=== PATIENT | male | born 1985 | race Hispanic/Latino ===

== ENCOUNTER 2016-06-22 13:00 | Emergency (ER) | payer OTHER ==
--- NOTE | 2016-06-22 13:52 | EDDOCDS ---
Physician Documentation [facility] Name: Merrill Jerry Age: 31 yrs Sex: Male : 1985 Arrival Date: 06/22/2016 Time: 13:00 Bed Triage 2 Private MD: Aneta Mccall FNP Disposition: 06/22/16 13:40 Discharged to Home/Self Care. Impression: Acute upper respiratory infection, unspecified. - Condition is Stable. - Discharge Instructions: Smoking Cessation, Upper Respiratory Infection, Adult, Cough, Adult. - Prescriptions for benzonatate 200 mg Oral Capsule - take 1 capsule by ORAL route 3 times per day As needed; 30 capsule. Fluticasone 50 mcg/actuation Nasal [place], Suspension - inhale 2 spray by INTRANASAL route once daily; 1 bottle. - Medication Reconciliation, Local Pharmacy Hours, Work Release Form - 2 day form. - Follow up: Aneta Mccall; When: Call to arrange an appointment; Reason: Recheck today's complaints, Continuance of care. Follow up: Emergency Department; When: As needed; Reason: Fever > 102F, Trouble breathing, Worsening of conditions. - Problem is new. - Symptoms are unchanged. Historical: - Allergies: no known allergies; - Home Meds: 1. Prozac 10 mg Oral cap once daily 2. omeprazole 40 mg oral cpDR 1 cap once daily 3. Klonopin 0.5 mg Oral tab four times a day pt states that he hasn't been taking this medication - PMHx: Depression; GERD; - PSHx: none; - Social history: Smoking status: Patient uses tobacco products, current every day smoker. No barriers to communication noted, The patient speaks fluent Albanian. - Family history: Not pertinent. - : The pt / caregiver states he / she is not on anticoagulants. Home medication list is obtained from the patient. - Exposure Risk Screening:: None identified. Vital Signs: 06/22 13:02 BP 132 / 78; Pulse 120; Resp 22 S; Temp 97.8(O); Pulse Ox 97% on R/A; Weight 83.46 kg / dd6 184 lbs (R); Height 5 ft. 8 in. (172.72 cm) (R); 13:48 Pulse 98; Resp 18; ms18 13:02 Body Mass Index 27.98 (83.46 kg, 172.72 cm) dd6 Signatures: Juan M Chambers PA-C PA-C ar2 Donna Srivastava,RN RN ms18 MTDD
--- NOTE | 2016-06-22 13:52 | EDDOCDS ---
Nurse's Notes [facility] Name: Merrill Jerry Age: 31 yrs Sex: Male : 1985 Arrival Date: 06/22/2016 Time: 13:00 Bed Triage 2 Private MD: Aneta Mccall FNP Diagnosis: Acute upper respiratory infection, unspecified Presentation: 06/22 13:04 Presenting complaint: Patient states: that he has an uncontrollable cough that started ms18 last night. Adult Sepsis Screening: The patient does not have new or worsening altered mentation. Patient's respiratory rate is less than 22. Systolic blood pressure is greater than 100. Patient has a qSOFA score of 0- Negative Sepsis Screen. Suicide/Homicide risk assessment- the patient denies having any suicidal and/or homicidal ideations and does not present with any other emotional, behavioral or mental health complaints. Status: Patient is not a patient services representative or dependent. Transition of care: patient was not received from another setting of care. 13:04 Acuity: ROSALIO Level 4 ms18 13:04 Method Of Arrival: Walkin/Carried/Asstd ms18 Triage Assessment: 13:07 General: Appears in no apparent distress, Behavior is appropriate for age, cooperative. ms18 Pain: Location: throat and chest Pain currently is 2 out of 10 on a pain scale. HIV screening NA for this visit Offered previously. Neurological: Level of Consciousness is awake, alert, obeys commands, Oriented to person, place, time. Respiratory: Airway is patent Respiratory effort is even, unlabored, Reports cough that is non-productive. Derm: Skin is pink, warm & dry. Historical: - Allergies: no known allergies; - Home Meds: 1. Prozac 10 mg Oral cap once daily 2. omeprazole 40 mg oral cpDR 1 cap once daily 3. Klonopin 0.5 mg Oral tab four times a day pt states that he hasn't been taking this medication - PMHx: Depression; GERD; - PSHx: none; - Social history: Smoking status: Patient uses tobacco products, current every day smoker. No barriers to communication noted, The patient speaks fluent [place]. - Family history: Not pertinent. - : The pt / caregiver states he / she is not on anticoagulants. Home medication list is obtained from the patient. - Exposure Risk Screening:: None identified. Screenin:48 Screening information is obtained from the patient. Fall risk: No risks identified. ms18 Assistance ADL's: requires no assistance with activities of daily living. Abuse/DV Screen: The patient / caregiver reports he/she is: not in a situation that causes fear, pain or injury. Nutritional screening: No deficits noted. Advance Directives: There is no living will. home support is adequate. Assessment: 13:48 General: Appears in no apparent distress, comfortable, Behavior is appropriate for age, ms18 cooperative. Neurological: Level of Consciousness is awake, alert, obeys commands, Oriented to person, place, time. Respiratory: Airway is patent Respiratory effort is even, unlabored, Reports cough that is non-productive, dry, hacking, persistent. Derm: Skin is pink, warm & dry. Vital Signs: 13:02 BP 132 / 78; Pulse 120; Resp 22 S; Temp 97.8(O); Pulse Ox 97% on R/A; Weight 83.46 kg dd6 (R); Height 5 ft. 8 in. (172.72 cm) (R); 13:48 Pulse 98; Resp 18; ms18 13:02 Body Mass Index 27.98 (83.46 kg, 172.72 cm) dd6 Vitals: 13:02 Log In Time: June 22, 2016 at 13:00. dd6 ED Course: 13:01 Patient visited by Baron Mason PCA. dd6 13:01 Aneta Mccall is Private Physician. dd6 13:01 Patient moved to Waiting dd6 13:02 Patient moved to Pre RCE dd6 13:05 Triage Initiated ms18 13:26 Patient moved to Triage 2 rs6 13:29 Juan M Chambers PA-C is PHCP. ar2 13:29 Edita Maguire MD is Attending Physician. ar2 13:29 Patient visited by Juan M Chambers PA-C. ar2 13:39 Aneta Mccall is Referral Physician. ar2 13:48 The patient / caregiver is instructed regarding the plan of care and ED course. Patient ms18 has correct armband on for positive identification. Property sent home with patient. :Personal belongings accompany Pt. 13:48 No IV's were initiated during this patient's visit. No procedures done that require ms18 assistance. Order Results: There are currently no results for this order. Outcome: 13:40 Discharge ordered by Provider. ar2 13:48 Discharge Assessment: Patient awake, alert and oriented x 3. No cognitive and/or ms18 functional deficits noted. Patient verbalized understanding of disposition instructions. patient administered narcotics - no. The following High Risk Discharge criteria are identified: None. Discharged to home ambulatory. Condition: good Condition: stable. Discharge instructions given to patient, Instructed on discharge instructions, follow up and referral plans. medication usage, Demonstrated understanding of instructions, medications, Pt was receptive of discharge instructions/ teaching. Prescriptions given X 2. No special radiology studies were completed. 13:51 Patient left the ED. ms18 Signatures: Juan M Chambers, AMRITAC PAGabino ar2 Baron Mason, DATA ENTRY ASSOCIATE DATA ENTRY ASSOCIATE dd6 Donna Srivastava RN RN ms18 Gissel Navarrete, DATA ENTRY ASSOCIATE DATA ENTRY ASSOCIATE rs6 Corrections: (The following items were deleted from the chart) 13:50 13:48 Resp 18bpm; ms18 ms18 MTDD
--- NOTE | 2016-06-24 14:52 | EDDOCDS ---
Nurse's Notes [facility] Name: Merrill Jerry Age: 31 yrs Sex: Male : 1985 Arrival Date: 06/22/2016 Time: 13:00 Bed Triage 2 Private MD: Aneta Mccall FNP Diagnosis: Acute upper respiratory infection, unspecified Presentation: 06/22 13:04 Presenting complaint: Patient states: that he has an uncontrollable cough that started ms18 last night. Adult Sepsis Screening: The patient does not have new or worsening altered mentation. Patient's respiratory rate is less than 22. Systolic blood pressure is greater than 100. Patient has a qSOFA score of 0- Negative Sepsis Screen. Suicide/Homicide risk assessment- the patient denies having any suicidal and/or homicidal ideations and does not present with any other emotional, behavioral or mental health complaints. Status: Patient is not a resident services coordinator or dependent. Transition of care: patient was not received from another setting of care. 13:04 Acuity: ROSALIO Level 4 ms18 13:04 Method Of Arrival: Walkin/Carried/Asstd ms18 Triage Assessment: 13:07 General: Appears in no apparent distress, Behavior is appropriate for age, cooperative. ms18 Pain: Location: throat and chest Pain currently is 2 out of 10 on a pain scale. HIV screening NA for this visit Offered previously. Neurological: Level of Consciousness is awake, alert, obeys commands, Oriented to person, place, time. Respiratory: Airway is patent Respiratory effort is even, unlabored, Reports cough that is non-productive. Derm: Skin is pink, warm & dry. Historical: - Allergies: no known allergies; - Home Meds: 1. Prozac 10 mg Oral cap once daily 2. omeprazole 40 mg oral cpDR 1 cap once daily 3. Klonopin 0.5 mg Oral tab four times a day pt states that he hasn't been taking this medication - PMHx: Depression; GERD; - PSHx: none; - Social history: Smoking status: Patient uses tobacco products, current every day smoker. No barriers to communication noted, The patient speaks fluent Trinidadian. - Family history: Not pertinent. - : The pt / caregiver states he / she is not on anticoagulants. Home medication list is obtained from the patient. - Exposure Risk Screening:: None identified. Screenin:48 Screening information is obtained from the patient. Fall risk: No risks identified. ms18 Assistance ADL's: requires no assistance with activities of daily living. Abuse/DV Screen: The patient / caregiver reports he/she is: not in a situation that causes fear, pain or injury. Nutritional screening: No deficits noted. Advance Directives: There is no living will. home support is adequate. Assessment: 13:48 General: Appears in no apparent distress, comfortable, Behavior is appropriate for age, ms18 cooperative. Neurological: Level of Consciousness is awake, alert, obeys commands, Oriented to person, place, time. Respiratory: Airway is patent Respiratory effort is even, unlabored, Reports cough that is non-productive, dry, hacking, persistent. Derm: Skin is pink, warm & dry. Vital Signs: 13:02 BP 132 / 78; Pulse 120; Resp 22 S; Temp 97.8(O); Pulse Ox 97% on R/A; Weight 83.46 kg dd6 (R); Height 5 ft. 8 in. (172.72 cm) (R); 13:48 Pulse 98; Resp 18; ms18 13:02 Body Mass Index 27.98 (83.46 kg, 172.72 cm) dd6 Vitals: 13:02 Log In Time: June 22, 2016 at 13:00. dd6 ED Course: 13:01 Patient visited by Baron Mason PCA. dd6 13:01 Aneta Mccall is Private Physician. dd6 13:01 Patient moved to Waiting dd6 13:02 Patient moved to Pre RCE dd6 13:05 Triage Initiated ms18 13:26 Patient moved to Triage 2 rs6 13:29 Juan M Chambers PA-C is PHCP. ar2 13:29 Edita Maguire MD is Attending Physician. ar2 13:29 Patient visited by Juan M Chambers PA-C. ar2 13:39 Aneta Mccall is Referral Physician. ar2 13:48 The patient / caregiver is instructed regarding the plan of care and ED course. Patient ms18 has correct armband on for positive identification. Property sent home with patient. :Personal belongings accompany Pt. 13:48 No IV's were initiated during this patient's visit. No procedures done that require ms18 assistance. 14:03 [facility] Payment Agreement was scanned into [employer] and attached to record. jp5 14:32 T-Sheet-- Draft Copy was scanned into [employer] and attached to record. gb Order Results: There are currently no results for this order. Outcome: 13:40 Discharge ordered by Provider. ar2 13:48 Discharge Assessment: Patient awake, alert and oriented x 3. No cognitive and/or ms18 functional deficits noted. Patient verbalized understanding of disposition instructions. patient administered narcotics - no. The following High Risk Discharge criteria are identified: None. Discharged to home ambulatory. Condition: good Condition: stable. Discharge instructions given to patient, Instructed on discharge instructions, follow up and referral plans. medication usage, Demonstrated understanding of instructions, medications, Pt was receptive of discharge instructions/ teaching. Prescriptions given X 2. No special radiology studies were completed. 13:51 Patient left the ED. ms18 Signatures: Dai Merida, Reg Reg gb Juan M Chambers, ANJELICA PA-Blair ar2 Baron Mason, MOVIE MACHINE OPERATOR MOVIE MACHINE OPERATOR dd6 Donna Srivastava,RN RN ms18 Gissel Navarrete, MOVIE MACHINE OPERATOR MOVIE MACHINE OPERATOR rs6 Sotero Hogue jp5 Corrections: (The following items were deleted from the chart) 13:50 13:48 Resp 18bpm; ms18 ms18 Chart Complete MTDD
--- NOTE | 2016-06-24 14:52 | EDDOCDS ---
Physician Documentation [facility] Name: Merrill Jerry Age: 31 yrs Sex: Male : 1985 Arrival Date: 06/22/2016 Time: 13:00 Bed Triage 2 Private MD: Aneta Mccall FNP Disposition: 06/22/16 13:40 Discharged to Home/Self Care. Impression: Acute upper respiratory infection, unspecified. - Condition is Stable. - Discharge Instructions: Smoking Cessation, Upper Respiratory Infection, Adult, Cough, Adult. - Prescriptions for benzonatate 200 mg Oral Capsule - take 1 capsule by ORAL route 3 times per day As needed; 30 capsule. Fluticasone 50 mcg/actuation Nasal [place], Suspension - inhale 2 spray by INTRANASAL route once daily; 1 bottle. - Medication Reconciliation, Local Pharmacy Hours, Work Release Form - 2 day form. - Follow up: Aneta Mccall; When: Call to arrange an appointment; Reason: Recheck today's complaints, Continuance of care. Follow up: Emergency Department; When: As needed; Reason: Fever > 102F, Trouble breathing, Worsening of conditions. - Problem is new. - Symptoms are unchanged. Historical: - Allergies: no known allergies; - Home Meds: 1. Prozac 10 mg Oral cap once daily 2. omeprazole 40 mg oral cpDR 1 cap once daily 3. Klonopin 0.5 mg Oral tab four times a day pt states that he hasn't been taking this medication - PMHx: Depression; GERD; - PSHx: none; - Social history: Smoking status: Patient uses tobacco products, current every day smoker. No barriers to communication noted, The patient speaks fluent Hebrew. - Family history: Not pertinent. - : The pt / caregiver states he / she is not on anticoagulants. Home medication list is obtained from the patient. - Exposure Risk Screening:: None identified. Vital Signs: 06/22 13:02 BP 132 / 78; Pulse 120; Resp 22 S; Temp 97.8(O); Pulse Ox 97% on R/A; Weight 83.46 kg / dd6 184 lbs (R); Height 5 ft. 8 in. (172.72 cm) (R); 13:48 Pulse 98; Resp 18; ms18 13:02 Body Mass Index 27.98 (83.46 kg, 172.72 cm) dd6 MDM: 14:03 [facility] [place] Agreement was scanned into [employer] and attached to record. jp5 14:03 Financial registration complete. jp5 14:32 T-Sheet-- Draft Copy was scanned into [employer] and attached to record. gb Signatures: Dai Merida, Reg Reg gb Juan M Chambers PA-C PA-C ar2 Donna SrivastavaRN RN ms18 Sotero Hogue jp5 The chart was reviewed and I authenticate all verbal orders and agree with the evaluation and treatment provided.Attachments: 14:03 [facility] Payment Agreement jp5 14:32 T-Sheet-- Draft Copy gb Chart Complete MTDD
--- NOTE | 2016-06-24 14:52 | EDDOCDS ---
Physician Documentation [facility] Name: Merrill Jerry Age: 31 yrs Sex: Male : 1985 Arrival Date: 06/22/2016 Time: 13:00 Bed Triage 2 Private MD: Aneta Mccall FNP Disposition: 06/22/16 13:40 Discharged to Home/Self Care. Impression: Acute upper respiratory infection, unspecified. - Condition is Stable. - Discharge Instructions: Smoking Cessation, Upper Respiratory Infection, Adult, Cough, Adult. - Prescriptions for benzonatate 200 mg Oral Capsule - take 1 capsule by ORAL route 3 times per day As needed; 30 capsule. Fluticasone 50 mcg/actuation Nasal [place], Suspension - inhale 2 spray by INTRANASAL route once daily; 1 bottle. - Medication Reconciliation, Local Pharmacy Hours, Work Release Form - 2 day form. - Follow up: Aneta Mccall; When: Call to arrange an appointment; Reason: Recheck today's complaints, Continuance of care. Follow up: Emergency Department; When: As needed; Reason: Fever > 102F, Trouble breathing, Worsening of conditions. - Problem is new. - Symptoms are unchanged. Historical: - Allergies: no known allergies; - Home Meds: 1. Prozac 10 mg Oral cap once daily 2. omeprazole 40 mg oral cpDR 1 cap once daily 3. Klonopin 0.5 mg Oral tab four times a day pt states that he hasn't been taking this medication - PMHx: Depression; GERD; - PSHx: none; - Social history: Smoking status: Patient uses tobacco products, current every day smoker. No barriers to communication noted, The patient speaks fluent Polish. - Family history: Not pertinent. - : The pt / caregiver states he / she is not on anticoagulants. Home medication list is obtained from the patient. - Exposure Risk Screening:: None identified. Vital Signs: 06/22 13:02 BP 132 / 78; Pulse 120; Resp 22 S; Temp 97.8(O); Pulse Ox 97% on R/A; Weight 83.46 kg / dd6 184 lbs (R); Height 5 ft. 8 in. (172.72 cm) (R); 13:48 Pulse 98; Resp 18; ms18 13:02 Body Mass Index 27.98 (83.46 kg, 172.72 cm) dd6 MDM: 14:03 [facility] [place] Agreement was scanned into [employer] and attached to record. jp5 14:03 Financial registration complete. jp5 14:32 T-Sheet-- Draft Copy was scanned into [employer] and attached to record. gb Signatures: Dai Merida, Reg Reg gb Juan M Chambers PA-C PA-C ar2 Donna SrivastavaRN RN ms18 Sotero Hogue jp5 The chart was reviewed and I authenticate all verbal orders and agree with the evaluation and treatment provided.Attachments: 14:03 [facility] Payment Agreement jp5 14:32 T-Sheet-- Draft Copy gb Chart Complete MTDD
== END 2016-06-22 13:51 | disposition home or self-care (01) ==
LOC: M ED 13:00
DX: J06.9 Acute upper respiratory infection, unspecified (principal); F32.9 Major depressive disorder, single episode, unspecified; K21.9 Gastro-esophageal reflux disease without esophagitis; F17.210 Nicotine dependence, cigarettes, uncomplicated; Z79.899 Other long term (current) drug therapy

== ENCOUNTER 2016-10-25 13:33 | Emergency (ER) | payer OTHER ==
[~2016-10-25] VITALS: Ht 172.7 cm; Wt 83.9 kg
[2016-10-25] MEDS ORDERED: MULTLIQ7 PO (13:43)
[2016-10-25] MEDS ORDERED: LOPE2CA (13:43)
[2016-10-25] MEDS ORDERED: CO Q10CA PO (13:43)
[2016-10-25] MEDS ORDERED: HYDR-3713 PO (13:43)
[2016-10-25] MEDS ORDERED: CLON0.5T (13:43)
[2016-10-25] MEDS ORDERED: OMEP20CA3 (13:43)
[2016-10-25] MEDS ORDERED: FLUO10CA9 (13:43)
[2016-10-25] MEDS ORDERED: NS 1,000 ML IV ONE (15:30)
[2016-10-25] MEDS ORDERED: MORPHINE 2 MG/ML 1ML SYRINGE IV PRN (15:30)
[2016-10-25] MEDS ORDERED: ONDANSETRON 4MG/2ML VIAL (J2405) IV ONE (15:30)
--- NOTE | 2016-10-25 15:59 | REP ---
Clinical: Acute right upper quadrant abdominal pain. Technique: Mosley scale ultrasound using curved array transducer. Findings: The liver and pancreas are normal in contour, size, and echogenicity without focal hepatic or pancreatic lesions identified. The gallbladder is without gallstones, or pericholecystic fluid. Mild gallbladder wall thickening cannot definitively be excluded measuring up to 4 mm. No biliary ductal dilatation is appreciated, and the common bile duct measures 3.4 mm diameter. The right kidney is normal in reniform shape without hydronephrosis and measures 11.5 x 6.1 x 5.2 cm. No ascites. Visualized portions of the abdominal aorta normal. Impression: Mild gallbladder wall thickening cannot be excluded and is essentially nonspecific given the lack of associated findings to suggest acute cholecystitis. Signed by Hansel Rose MD 10/25/2016 03:50 P
[2016-10-25 16:20] LABS: BASO % 0.3 % (0.0-1.0); EOS # 0.2 K/mm3 (0.0-0.50); EOS % 1.2 % (0.0-3.0); LARGE UNSTAINED CELL # 0.1 K/mm3 (0.0-0.4); LARGE UNSTAINED CELL % 1.1 % (0.0-4.0); LYMPH # 1.6 K/mm3 (1.5-4.5); LYMPH % 11.8 % (24.0-44.0); MEAN CORPUSCULAR HGB CONC 34.2 g/dl (32.0-36.5); MEAN CORPUSCULAR VOLUME 96.5 fl (80.0-96.0); MONO # 0.6 K/mm3 (0.0-0.8); NEUTROPHILS % 80.7 % (36.0-66.0); PLATELET COUNT, AUTOMATED 196 k/mm3 (150-450); RED CELL DISTRIBUTION WIDTH 12.9 % (11.5-14.5); WHITE BLOOD COUNT 12.4 K/mm3 (4.0-10.0)
[2016-10-25 16:24] LABS: ALBUMIN 4.2 GM/DL (3.2-5.2); ALKALINE PHOSPHATASE 65 U/L (45-117); ALT/SGPT 27 U/L (12-78); ANION GAP 5 MEQ/L (8-16); AST/SGOT 18 U/L (15-37); BILIRUBIN,DIRECT 0.2 MG/DL (0.0-0.2); BILIRUBIN,TOTAL 0.6 MG/DL (0.2-1.0); BLOOD UREA NITROGEN 11 MG/DL (7-18); CALCIUM LEVEL 9.2 MG/DL (8.5-10.1); CARBON DIOXIDE LEVEL 30 MEQ/L (21-32); CHLORIDE LEVEL 102 MEQ/L (98-107); CREATININE FOR GFR 0.98 MG/DL (0.70-1.30); GLOMERULAR FILTRATION RATE > 60.0 (>60); GLUCOSE, FASTING 91 MG/DL (70-105); POTASSIUM SERUM 4.4 MEQ/L (3.5-5.1); SODIUM LEVEL 137 MEQ/L (136-145); TOTAL PROTEIN 7.7 GM/DL (6.4-8.2)
[2016-10-25 17:41] VITALS: BP 123/76
== END 2016-10-25 17:41 | disposition home or self-care (01) ==
LOC: M ED 15:24
DX: R10.11 Right upper quadrant pain (principal); R11.2 Nausea with vomiting, unspecified; F17.210 Nicotine dependence, cigarettes, uncomplicated; Z79.899 Other long term (current) drug therapy
CPT/HCPCS: 76705; 80048; 80076; 81001; 83605; 83690; 85025; 96374; 96375; 99283; J2405

== ENCOUNTER → 2016-12-21 | Day surgery (SDC) | payer OTHER ==
[~2016-12-21] VITALS: Ht 172.7 cm; Wt 83.9 kg
[~2016-12-21] MED LIST: BUPIVACAINE/EPIN 0.25% 30 ML VIAL As Ordered ONE; CLON0.5T PO; CO Q10CA PO; FLUO10CA9; GLYCOPYRROLATE INJ 0.2 MG/ML 2 ML VIAL As Ordered ONE; HYDR-3713 PO; KETOROLAC 30 MG/ML VIAL (J1885) IV SCH; LIDOCAINE 2% INJ 100 MG/5 ML SDV (FOR ANES.) As Ordered ONE; LOPE2CA; LR 1,000 ML IV ONE; LR 1,000 ML IV SCH; METOCLOPRAMIDE INJ 10MG/2ML VIAL (J2765) As Ordered ONE; METOCLOPRAMIDE INJ 10MG/2ML VIAL (J2765) IV PRN; MIDAZOLAM INJ 2 MG/2 ML VIAL (J2250) As Ordered ONE; MORPHINE 2 MG/ML 1ML SYRINGE IV PRN; MULTLIQ7 PO; NAPR500T3 PO; NEOSTIGMINE 1MG/ML 5 ML SYRINGE (J2710) As Ordered ONE; NORCO, ANEXSIA 5/325MG TABLET (HYDROcodone/ACETAMINOPHEN) PO PRN; OMEP20CA3 PO; ONDANSETRON 4MG/2ML VIAL (J2405) As Ordered ONE; ONDANSETRON 4MG/2ML VIAL (J2405) IV PRN; PERCOCET 5MG/325MG TAB PO PRN; PROPOFOL 200 MG/20 ML VIAL As Ordered ONE; ROCURONIUM BROMIDE 50 MG/5 ML VIAL/SYRINGE As Ordered ONE; ceFAZolin SOD 1 GM in D5W MINI-BAG PLUS 50 ML IV ONE; fentaNYL 100 MCG/2 ML INJECTION (J3010) IV PRN; fentaNYL 250 MCG/5 ML INJECTION (J3010) As Ordered ONE
[2016-12-21 13:15] VITALS: BP 146/84
--- NOTE | 2016-12-28 23:58 | RO ---
DATE OF PROCEDURE: 12/21/2016 PREOPERATIVE DIAGNOSIS: Symptomatic gallstones. POSTOPERATIVE DIAGNOSIS: Symptomatic gallstones. PROCEDURE: Laparoscopic cholecystectomy. SURGEON: Dr. Tal Garsia OPERATIONS DIRECTOR: ANESTHESIA: General endotracheal anesthesia. ESTIMATED BLOOD LOSS: Minimal. FLUIDS: Crystalloid. DESCRIPTION OF PROCEDURE: The patient was brought to the operating room, was given general anesthesia. After adequate anesthesia was established, the patient was prepped and draped in the usual sterile fashion. Next, after adequate antibiotics were given as well, a supraumbilical incision was made with a skin knife and blunt dissection was carried down to fascia. Fascia was grasped with Ramesh clamps and elevated and a Veress needle placed into the abdominal cavity, insufflated to 15 mm pressure. Dilating 10 mm trocar was placed at this time and under direct visualization, an epigastric and two lateral trocars were placed. Gallbladder was grasped, retracted superiorly. There were numerous adhesions of the gallbladder to the omentum, which were taken down with hook cautery and the neck the gallbladder then was cleared of peritoneum using the hook cautery as well. This was started on the lateral side and then brought anteriorly and then medially. Once the dissection continued further, a good window behind the neck of the gallbladder was created using hook cautery and blunt dissection. The cystic artery was well visualized, was circumferentially isolated and clips were placed on this proximally and distally and transected. The cystic duct was also seen, was well visualized, was clipped proximally and distally and transected. This was after identifying the critical view of safety. Next, the gallbladder was removed. from the gallbladder bed using electrocautery, placed in an EndoCatch bag, brought out through the umbilicus. The right upper quadrant was copiously irrigated until clear. All incisions were closed with #0 Vicryl and #4-0 Vicryl was used to approximate the skin. Steri-Strips and a dry sterile dressing was applied. The patient was awakened, extubated, brought to the recovery room awake, alert and hemodynamically stable. Sponge and needle counts were correct times two.
== END ==
LOC: M SDC 08:41
PROVIDERS: ATTEND Surgery
DX: K80.10 Calculus of gallbladder with chronic cholecystitis without obstruction (principal); F41.9 Anxiety disorder, unspecified; F32.9 Major depressive disorder, single episode, unspecified; K58.9 Irritable bowel syndrome, unspecified; K21.9 Gastro-esophageal reflux disease without esophagitis; F17.210 Nicotine dependence, cigarettes, uncomplicated; Z79.899 Other long term (current) drug therapy

== ENCOUNTER 2017-11-04 09:56 | Emergency (ER) | payer OTHER ==
[2017-11-04] MEDS: ADACEL/BOOSTRIX VACCINE (DIPHTH/PERTUSS/ACELL/TETANUS)0.5ML SYR (90715) IM (11:43)
[2017-11-04] MEDS: DERMABOND TOPICAL SKIN ADHESIVE TOP (11:44)
== END 2017-11-04 12:55 | disposition home or self-care (01) ==
LOC: M ED 09:56
DX: S09.90XA Unspecified injury of head, initial encounter (principal); S01.112A Laceration without foreign body of left eyelid and periocular area, initial encounter; W22.8XXA Striking against or struck by other objects, initial encounter; Y92.099 Unspecified place in other non-institutional residence as the place of occurrence of the external cause; Y93.9 Activity, unspecified; Y99.9 Unspecified external cause status; F32.9 Major depressive disorder, single episode, unspecified; F41.9 Anxiety disorder, unspecified; Z72.0 Tobacco use; Z79.899 Other long term (current) drug therapy
CPT/HCPCS: 90715

== ENCOUNTER → 2018-02-15 | Outpatient (CLI) | payer MEDICAID, OTHER ==
[2018-02-15 10:29] LABS: BASO % 0.5 % (0.0-1.0); EOS # 0.2 10^3/uL (0.0-0.50); EOS % 3.7 % (0.0-3.0); HEMATOCRIT 38.1 % (42.0-52.0); HEMOGLOBIN 13.1 g/dl (13.5-17.5); IMMATURE GRANULOCYTE % 0.2 % (0-3.0); LYMPH # 2.1 10^3/uL (1.5-4.5); LYMPH % 31.6 % (24.0-44.0); MEAN CORPUSCULAR HEMOGLOBIN 31.5 pg (27.0-33.0); MEAN CORPUSCULAR HGB CONC 34.4 g/dl (32.0-36.5); MEAN CORPUSCULAR VOLUME 91.6 fl (80.0-96.0); MONO # 0.6 10^3/uL (0.0-0.8); MONO % 8.9 % (0.0-5.0); NEUTROPHILS # 3.6 10^3/uL (1.8-7.7); NEUTROPHILS % 55.1 % (36.0-66.0); PLATELET COUNT, AUTOMATED 222 10^3/uL (150-450); RED BLOOD COUNT 4.16 10^6/uL (4.30-6.10); WHITE BLOOD COUNT 6.5 10^3/uL (4.0-10.0)
[2018-02-15 11:06] LABS: ESTIMATED AVERAGE GLUCOSE 111 MG/DL (60-110); HEMOGLOBIN A1c 5.5 %
[2018-02-15 11:07] LABS: ALBUMIN/GLOBULIN RATIO 1.33 (1.00-1.93); ALKALINE PHOSPHATASE 57 U/L (45-117); ALT/SGPT 21 U/L (12-78); ANION GAP 9 MEQ/L (8-16); AST/SGOT 12 U/L (7-37); BILIRUBIN,TOTAL 0.4 MG/DL (0.2-1.0); BLOOD UREA NITROGEN 12 MG/DL (7-18); CALCIUM LEVEL 8.8 MG/DL (8.5-10.1); CARBON DIOXIDE LEVEL 24 MEQ/L (21-32); CHLORIDE LEVEL 110 MEQ/L (98-107); CHOLESTEROL LEVEL 122 MG/DL (<200); CHOLESTEROL RISK RATIO 3.935 (<5); CREATININE FOR GFR 0.89 MG/DL (0.70-1.30); GLOMERULAR FILTRATION RATE > 60.0 (>60); GLUCOSE, FASTING 97 MG/DL (70-100); HDL CHOLESTEROL 31 MG/DL (>40); LDL CHOLESTEROL 67.4 MG/DL (<100); NON-HDL-C 91 MG/DL; POTASSIUM SERUM 4.2 MEQ/L (3.5-5.1); SODIUM LEVEL 143 MEQ/L (136-145); THYROID STIMULATING HORMONE 0.157 uIU/ML (0.358-3.740); TOTAL 25(OH) VITAMIN D 28.7 NG/ML (30.0-100.0); TRIGLYCERIDES LEVEL 118 MG/DL (<150); VITAMIN B12 LEVEL 305 PG/ML (247-911)
== END ==
LOC: M LAB 09:55
DX: F39 Unspecified mood [affective] disorder (principal)
CPT/HCPCS: 84443

== ENCOUNTER → 2019-03-05 | Outpatient (REF) | payer BC ==
[~2019-03-05] MED LIST changes: -BUPIVACAINE/EPIN 0.25% 30 ML VIAL As Ordered ONE; +CELE10TA PO; -CLON0.5T PO; +CLON0.5T8 PO; -GLYCOPYRROLATE INJ 0.2 MG/ML 2 ML VIAL As Ordered ONE; -KETOROLAC 30 MG/ML VIAL (J1885) IV SCH; -LIDOCAINE 2% INJ 100 MG/5 ML SDV (FOR ANES.) As Ordered ONE; -LR 1,000 ML IV ONE; -LR 1,000 ML IV SCH; -METOCLOPRAMIDE INJ 10MG/2ML VIAL (J2765) As Ordered ONE; -METOCLOPRAMIDE INJ 10MG/2ML VIAL (J2765) IV PRN; -MIDAZOLAM INJ 2 MG/2 ML VIAL (J2250) As Ordered ONE; -MORPHINE 2 MG/ML 1ML SYRINGE IV PRN; +NAPR-885 PO; -NAPR500T3 PO; -NEOSTIGMINE 1MG/ML 5 ML SYRINGE (J2710) As Ordered ONE; -NORCO, ANEXSIA 5/325MG TABLET (HYDROcodone/ACETAMINOPHEN) PO PRN; -OMEP20CA3 PO; +OMEP20CA4 PO; -ONDANSETRON 4MG/2ML VIAL (J2405) As Ordered ONE; -ONDANSETRON 4MG/2ML VIAL (J2405) IV PRN; -PERCOCET 5MG/325MG TAB PO PRN; -PROPOFOL 200 MG/20 ML VIAL As Ordered ONE; -ROCURONIUM BROMIDE 50 MG/5 ML VIAL/SYRINGE As Ordered ONE; -ceFAZolin SOD 1 GM in D5W MINI-BAG PLUS 50 ML IV ONE; -fentaNYL 100 MCG/2 ML INJECTION (J3010) IV PRN; -fentaNYL 250 MCG/5 ML INJECTION (J3010) As Ordered ONE
[2019-03-05 16:32] LABS: BASO % 0.5 % (0.0-1.0); EOS # 0.2 10^3/uL (0.0-0.5); EOS % 2.1 % (0.0-3.0); HEMATOCRIT 40.5 % (42.0-52.0); LYMPH # 2.8 10^3/uL (1.5-5.0); LYMPH % 33.2 % (24.0-44.0); MEAN CORPUSCULAR HEMOGLOBIN 33.3 pg (27.0-33.0); MEAN CORPUSCULAR HGB CONC 34.6 g/dl (32.0-36.5); MEAN CORPUSCULAR VOLUME 96.2 fl (80.0-96.0); MONO # 0.8 10^3/uL (0.0-0.8); MONO % 8.9 % (0.0-5.0); NEUTROPHILS # 4.7 10^3/uL (1.5-8.5); NEUTROPHILS % 54.9 % (36.0-66.0); PLATELET COUNT, AUTOMATED 221 10^3/uL (150-450); RED BLOOD COUNT 4.21 10^6/uL (4.30-6.10); WHITE BLOOD COUNT 8.6 10^3/uL (4.0-10.0)
[2019-03-05 16:45] LABS: ALBUMIN 4.4 GM/DL (3.2-5.2); ALT/SGPT 22 U/L (12-78); BILIRUBIN,TOTAL 0.8 MG/DL (0.2-1.0); BLOOD UREA NITROGEN 9 MG/DL (7-18); CALCIUM LEVEL 9.2 MG/DL (8.5-10.1); CARBON DIOXIDE LEVEL 26 MEQ/L (21-32); CHLORIDE LEVEL 103 MEQ/L (98-107); CHOLESTEROL LEVEL 162 MG/DL (<200); CHOLESTEROL RISK RATIO 4.263 (<5); CREATININE FOR GFR 1.09 MG/DL (0.70-1.30); FREE T4 0.91 NG/DL (0.76-1.46); GLOMERULAR FILTRATION RATE > 60.0 (>60); GLUCOSE, FASTING 90 MG/DL (70-100); HDL CHOLESTEROL 38 MG/DL (>40); LDL CHOLESTEROL 80 MG/DL (<100); NON-HDL-C 124 MG/DL; POTASSIUM SERUM 4.1 MEQ/L (3.5-5.1); SODIUM LEVEL 138 MEQ/L (136-145); TOTAL PROTEIN 7.7 GM/DL (6.4-8.2); TRIGLYCERIDES LEVEL 220 MG/DL (<150)
[2019-03-05 17:30] LABS: HEMOGLOBIN A1c 5.6 %
== END ==
LOC: M LAB REF 15:51
PROVIDERS: ATTEND Nurse Practitioner Family
DX: Z00.01 Encounter for general adult medical examination with abnormal findings (principal)

== ENCOUNTER 2019-10-22 18:00 | Emergency (ER) | payer BC ==
[~2019-10-22] VITALS: Ht 172.7 cm; Wt 78.3 kg
[2019-10-22 18:00] VITALS: BP 132/84
[~2019-10-22 18:00] MED LIST changes: +CLON0.5T2 PO; -CLON0.5T8 PO; +OMEP1CAP73 PO; -OMEP20CA4 PO
[2019-10-22] MEDS ORDERED: TETRACAINE 0.5% OPHTH SOLN 4ML OS ONE (18:45)
[2019-10-22] MEDS ORDERED: FLUORESCEIN OPHTH 1 MG STRIP OS ONE (18:45)
[2019-10-22] MEDS ORDERED: KETO0.02 OS (18:56)
[2019-10-22] MEDS ORDERED: OCUF0.25 OS (18:56)
== END 2019-10-22 19:06 | disposition home or self-care (01) ==
LOC: M ED 18:00
DX: S05.02XA Injury of conjunctiva and corneal abrasion without foreign body, left eye, initial encounter (principal); X58.XXXA Exposure to other specified factors, initial encounter; Y92.9 Unspecified place or not applicable; K21.9 Gastro-esophageal reflux disease without esophagitis; F41.9 Anxiety disorder, unspecified; F33.9 Major depressive disorder, recurrent, unspecified; Z79.899 Other long term (current) drug therapy

== ENCOUNTER → 2020-08-06 | Outpatient (REF) | payer BC ==
[~2020-08-06] MED LIST changes: +KETO0.02 OS; +OCUF0.25 OS
[2020-08-06 19:18] LABS: BASO % 0.2 % (0.0-1.0); EOS # 0.1 10^3/uL (0.0-0.5); EOS % 1.7 % (0.0-3.0); HEMATOCRIT 41.2 % (42.0-52.0); HEMOGLOBIN 13.6 g/dl (13.5-17.5); LYMPH # 2.1 10^3/uL (1.5-5.0); LYMPH % 24.6 % (24.0-44.0); MEAN CORPUSCULAR HEMOGLOBIN 32.2 pg (27.0-33.0); MEAN CORPUSCULAR VOLUME 97.4 fl (80.0-96.0); MONO # 0.8 10^3/uL (0.0-0.8); MONO % 10.1 % (2.0-8.0); NEUTROPHILS # 5.3 10^3/uL (1.5-8.5); NEUTROPHILS % 62.9 % (36.0-66.0); PLATELET COUNT, AUTOMATED 216 10^3/uL (150-450); RED BLOOD COUNT 4.23 10^6/uL (4.30-6.10); WHITE BLOOD COUNT 8.3 10^3/uL (4.0-10.0)
[2020-08-06 19:21] LABS: ALBUMIN 4.1 GM/DL (3.2-5.2); ALT/SGPT 34 U/L (12-78); BILIRUBIN,TOTAL 0.4 MG/DL (0.2-1.0); BLOOD UREA NITROGEN 15 MG/DL (7-18); CALCIUM LEVEL 9.2 MG/DL (8.5-10.1); CARBON DIOXIDE LEVEL 28 MEQ/L (21-32); CHLORIDE LEVEL 106 MEQ/L (98-107); CHOLESTEROL LEVEL 136 MG/DL (<200); CHOLESTEROL RISK RATIO 2.566 (<5); CREATININE FOR GFR 0.95 MG/DL (0.70-1.30); GLOMERULAR FILTRATION RATE > 60.0 (>60); GLUCOSE, FASTING 93 MG/DL (70-100); HDL CHOLESTEROL 53 MG/DL (>40); LDL CHOLESTEROL 48 MG/DL (<100); NON-HDL-C 83 MG/DL; POTASSIUM SERUM 4.5 MEQ/L (3.5-5.1); SODIUM LEVEL 139 MEQ/L (136-145); THYROID STIMULATING HORMONE 0.325 uIU/ML (0.358-3.740); TOTAL 25(OH) VITAMIN D 12.7 NG/ML (30.0-100.0); TOTAL PROTEIN 7.2 GM/DL (6.4-8.2); TRIGLYCERIDES LEVEL 176 MG/DL (<150)
== END ==
LOC: M LAB REF 17:07
PROVIDERS: ATTEND Pediatrics
DX: K21.9 Gastro-esophageal reflux disease without esophagitis (principal); F34.1 Dysthymic disorder; Z13.220 Encounter for screening for lipoid disorders

== ENCOUNTER → 2020-09-19 | Outpatient (REF) | payer BC ==
[2020-09-19 18:51] LABS: FREE T3 3.1 PG/ML (2.2-4.0); FREE T4 0.87 NG/DL (0.76-1.46); THYROID STIMULATING HORMONE 0.109 uIU/ML (0.358-3.740)
== END ==
LOC: M LAB REF 16:58
PROVIDERS: ATTEND Pediatrics
DX: R94.6 Abnormal results of thyroid function studies (principal)

== ENCOUNTER → 2020-10-10 | Outpatient (REF) | payer BC ==
[2020-10-10 18:14] LABS: FREE T4 0.85 NG/DL (0.76-1.46); THYROID STIMULATING HORMONE 0.347 uIU/ML (0.358-3.740)
== END ==
LOC: M LAB REF 16:58
PROVIDERS: ATTEND Pediatrics
DX: R94.6 Abnormal results of thyroid function studies (principal)

== ENCOUNTER 2021-02-02 09:00 | Emergency (ER) | payer BC ==
[~2021-02-02] VITALS: Ht 172.7 cm; Wt 82.5 kg
[2021-02-02 09:00] VITALS: BP 134/80
[2021-02-02] MEDS ORDERED: CLON0.5T2 (09:12)
[2021-02-02] MEDS ORDERED: FLUT1BLS5 (09:12)
--- NOTE | 2021-02-02 09:39 | REP ---
INDICATION: PAIN COMPARISON: None. TECHNIQUE: Frontal view of the chest with multiple views of the hemithorax. FINDINGS: Nondisplaced posterior right 7th rib fracture noted. No further obvious rib fracture identified. Frontal view of the chest demonstrates no acute cardiopulmonary process, contusion, effusion, or pneumothorax. IMPRESSION: Nondisplaced posterior right 7th rib fracture. <Electronically signed by Hansel Rose > 02/02/21 [id number]
--- NOTE | 2021-02-02 21:38 | ECGEPIP ---
[facility] - ED Test Date: 2021-02-02 Pat Name: BRENT MOODY Department: Room: - Gender: Male Special Officer: : 1985 Requested By: FRANCISCO Cartagena PA-C Order Number: [id number] Reading MD: Nasir Randall Measurements Intervals [place] Rate: 71 P: 54 IN: 172 QRS: 80 QRSD: 94 T: 47 QT: 380 QTc: 412 Interpretive Statements Sinus rhythm with marked sinus arrhythmia NO PRIORS FOR COMPARISON Electronically Signed on 02-02-2021 21:38:18 EDT by Nasir Randall
== END 2021-02-02 12:08 | disposition home or self-care (01) ==
LOC: M ED 09:00
DX: S22.31XA Fracture of one rib, right side, initial encounter for closed fracture (principal); X58.XXXA Exposure to other specified factors, initial encounter; Y92.9 Unspecified place or not applicable; Y93.9 Activity, unspecified; Y99.9 Unspecified external cause status; K21.9 Gastro-esophageal reflux disease without esophagitis; Z79.899 Other long term (current) drug therapy

== ENCOUNTER → 2021-08-19 | Outpatient (CLI) | payer BC ==
[~2021-08-19] MED LIST changes: +CLON0.5T2; +FLUT1BLS5
== END ==
LOC: M RAD 15:22
PROVIDERS: ATTEND Pediatrics
DX: R94.6 Abnormal results of thyroid function studies (principal)

== ENCOUNTER → 2023-01-21 | Outpatient (REF) | payer BC ==
[~2023-01-21] MED LIST changes: -KETO0.02 OS; +KETO5DRO33 OS
[2023-01-21 18:20] LABS: BASO % 0.6 % (0.0-1.0); EOS # 0.2 10^3/uL (0.0-0.5); EOS % 2.5 % (0.0-3.0); HEMOGLOBIN 13.1 g/dl (13.5-17.5); LYMPH % 29.2 % (24.0-44.0); MEAN CORPUSCULAR HEMOGLOBIN 32.3 pg (27.0-33.0); MEAN CORPUSCULAR HGB CONC 33.6 g/dl (32.0-36.5); MEAN CORPUSCULAR VOLUME 96.1 fl (80.0-96.0); MONO # 0.6 10^3/uL (0.0-0.8); MONO % 9.1 % (2.0-8.0); NEUTROPHILS % 58.5 % (36.0-66.0); PLATELET COUNT, AUTOMATED 201 10^3/uL (150-450); RED BLOOD COUNT 4.06 10^6/uL (4.30-6.10); WHITE BLOOD COUNT 6.8 10^3/uL (4.0-10.0)
[2023-01-21 18:29] LABS: HEMOGLOBIN A1c 5.7 % (4.0-6.0)
[2023-01-21 18:42] LABS: ALBUMIN 4.2 G/DL (3.2-5.2); ALKALINE PHOSPHATASE 46 U/L (46-116); ALT/SGPT 20 U/L (7.0-40); AST/SGOT 9 U/L (<34); BILIRUBIN,TOTAL 0.4 MG/DL (0.3-1.2); BLOOD UREA NITROGEN 12 MG/DL (9-23); CALCIUM LEVEL 9.4 MG/DL (8.5-10.1); CARBON DIOXIDE LEVEL 28 MMOL/L (20-31); CHLORIDE LEVEL 107 MMOL/L (98-107); CREATININE FOR GFR 0.97 MG/DL (0.70-1.30); GLOMERULAR FILTRATION RATE > 60.0 (>60); GLUCOSE, FASTING 75 MG/DL (60-100); POTASSIUM SERUM 4.3 MMOL/L (3.5-5.1); SODIUM LEVEL 139 MMOL/L (136-145); TOTAL PROTEIN 6.9 G/DL (5.7-8.2)
[2023-01-21 18:44] LABS: FREE T4 1.07 NG/DL (0.89-1.76)
[2023-01-21 18:45] LABS: THYROID STIMULATING HORMONE 0.223 uIU/ML (0.55-4.78)
[2023-01-21 18:47] LABS: THYROGLOBULIN ANTIBODY < 15.0 U/ML (<60.0)
== END ==
LOC: M LAB REF 16:32
PROVIDERS: ATTEND Pediatrics
DX: R94.6 Abnormal results of thyroid function studies (principal); K21.9 Gastro-esophageal reflux disease without esophagitis; Z79.899 Other long term (current) drug therapy

== ENCOUNTER → 2023-03-31 | Outpatient (REF) | payer BC | LOC: M LAB REF 16:06 → EEVIPCON 16:06 | PROVIDERS: ATTEND Physician Assistant | DX: S61.209A Unspecified open wound of unspecified finger without damage to nail, initial encounter (principal); X58.XXXA Exposure to other specified factors, initial encounter; Y92.9 Unspecified place or not applicable; Y93.9 Activity, unspecified; Y99.9 Unspecified external cause status ==

== ENCOUNTER 2023-09-10 17:55 | Emergency (ER) | payer BC ==
[~2023-09-10] VITALS: Ht 172.7 cm; Wt 72.8 kg
[2023-09-10 18:42] LABS: HEMOGLOBIN 14.1 g/dl (13.5-17.5); MEAN CORPUSCULAR HEMOGLOBIN 33.1 pg (27.0-33.0); MEAN CORPUSCULAR VOLUME 93.9 fl (80.0-96.0); RED BLOOD COUNT 4.26 10^6/uL (4.30-6.10); WHITE BLOOD COUNT 7.9 10^3/uL (4.0-10.0)
[2023-09-10 18:43] LABS: BASO % 0.4 % (0.0-1.0); EOS # 0.2 10^3/uL (0.0-0.5); EOS % 1.9 % (0.0-3.0); LYMPH # 2.2 10^3/uL (1.5-5.0); LYMPH % 27.5 % (24.0-44.0); MEAN CORPUSCULAR HGB CONC 35.3 g/dl (32.0-36.5); MONO # 0.7 10^3/uL (0.0-0.8); MONO % 8.6 % (2.0-8.0); NEUTROPHILS # 4.9 10^3/uL (1.5-8.5); NEUTROPHILS % 61.5 % (36.0-66.0); PLATELET COUNT, AUTOMATED 221 10^3/uL (150-450)
[2023-09-10 19:11] LABS: LIPASE 32 U/L (12-53)
[2023-09-10 19:12] LABS: C REACTIVE PROTEIN QUANTITATIV < 0.40 MG/DL (<1.0)
[2023-09-10 19:13] LABS: ALBUMIN 4.1 G/DL (3.2-5.2); ALKALINE PHOSPHATASE 43 U/L (46-116); ALT/SGPT 42 U/L (7.0-40); AST/SGOT 29 U/L (<34); BILIRUBIN,DIRECT 0.2 MG/DL (<0.4); BILIRUBIN,TOTAL 0.7 MG/DL (0.3-1.2); BLOOD UREA NITROGEN 12 MG/DL (9-23); CALCIUM LEVEL 9.4 MG/DL (8.5-10.1); CARBON DIOXIDE LEVEL 25 MMOL/L (20-31); CHLORIDE LEVEL 104 MMOL/L (98-107); CK-MB VALUE MASS < 1.0 NG/ML (<3.6); CREATININE FOR GFR 0.91 MG/DL (0.70-1.30); GLOMERULAR FILTRATION RATE > 60.0 (>60); GLUCOSE, FASTING 94 MG/DL (60-100); POTASSIUM SERUM 4.2 MMOL/L (3.5-5.1); SODIUM LEVEL 134 MMOL/L (136-145); TOTAL PROTEIN 7.2 G/DL (5.7-8.2)
[2023-09-10] MEDS ORDERED: ISOVUE-370 76% 100ML VIAL As Ordered ONE (19:16)
[2023-09-10 19:21] LABS: CPK CREATINE PHOSPHOKINASE 182 U/L (46-171); MB/CK RELATIVE INDEX 0.54 (< OR =4)
[2023-09-10 19:25] LABS: PROCALCITONIN <0.04 ng/ml
[2023-09-10 19:59] LABS: CK-MB VALUE MASS < 1.0 NG/ML (<3.6)
[2023-09-10 20:02] LABS: CPK CREATINE PHOSPHOKINASE 159 U/L (46-171); MB/CK RELATIVE INDEX 0.62 (< OR =4)
[2023-09-10] MEDS: NS 1,000 ML IV ONE (20:26)
[2023-09-10] MEDS: methylPREDNISolone 125MG 2ML VIAL IV ONE (20:26)
[2023-09-10] MEDS: IPRATROPIUM 0.5MG/ALBUTEROL 2.5MG INH SOL UD 3ML (DUONEB) NEB ONE (20:37)
[2023-09-10 21:46] VITALS: O2SAT 98
[2023-09-10] MEDS ORDERED: PRED10TA2 PO (21:57)
[2023-09-10 22:11] VITALS: BP 132/74; TEMP 98.2; O2SAT 98
== END 2023-09-10 22:13 | disposition home or self-care (01) ==
LOC: M ED 17:55
DX: J44.9 Chronic obstructive pulmonary disease, unspecified (principal); R55 Syncope and collapse; F41.9 Anxiety disorder, unspecified; F12.10 Cannabis abuse, uncomplicated; Z79.899 Other long term (current) drug therapy; Z79.52 Long term (current) use of systemic steroids
CPT/HCPCS: 71045; 71275; 80048; 80076; 82550; 82553; 83690; 83880; 84145; 85025; 86140; 87486; 87581; 87633; 87798; 93005; 93041; 94640; 94760; 96361; 96374; 99285; J2930; Q9967